=== PATIENT | female | born 1975 | race Caucasian/White ===

== ENCOUNTER 2016-08-01 15:58 | Emergency (ER) | payer BC, OTHER ==
[~2016-08-01] VITALS: Wt 80.5 kg
--- NOTE | 2016-08-01 16:34 | ERD ---
ER Documentation Chief Complaint Date/Time DATE: 08/01/16 TIME: 16:29 Chief Complaint COUGH WITH PHLEGM, SOB, ONSET 4 DAYS (CHELA FORRESTER) HPI This a 40-year-old female who presents to the emergency department today for cough, phlegm, shortness of breath for the past 4 days. Patient states she think she has had a fever because she has "felt warm". States that she has been using ipratropium inhaler. States that she is on day 3 of a Z-Bob. Denies any chest pain, cigarette smoking, prolonged travel peer (ELDER WILSON PA-C) ROS All systems reviewed and are negative except as per history of present illness. (CHELA FORRESTER) Medications Home Meds Active Scripts Guaifenesin-Dextromethorphan* (Robitussin* DM) 100MG/10MG/5ML Syrup, 10 ML PO Q4H Y for COUGH for 5 Days, ML Prov:ELDER WILSON PA-C 08/01/16 Prednisone* (Prednisone*) 20 Mg Tab, 40 MG PO DAILY for 4 Days, TAB Prov:ELDER WILSON PA-C 08/01/16 PMhx/Soc Medical and Surgical Hx: pt denies Medical Hx, pt denies Surgical Hx Hx Alcohol Use: No Hx Substance Use: No Hx Tobacco Use: No Smoking Status: Never smoker (CHELA FORRESTER) Physical Exam Vitals Vital Signs Date Time Temp Pulse Resp B/P Pulse Ox O2 Delivery O2 Flow Rate FiO2 08/01/16 16:01 99.0 95 17 128/84 97 (ELDER WILSON PA-C) Physical Exam Const: [] Head: Atraumatic Eyes: Normal Conjunctiva ENT: Normal External Ears, Nose and Mouth. Neck: Full range of motion..~ No meningismus. Resp: Clear to auscultation bilaterally Cardio: Regular rate and rhythm, no murmurs Abd: Soft, non tender, non distended. Normal bowel sounds Skin: No petechiae or rashes Back: No midline or flank tenderness Ext: No cyanosis, or edema Neur: Awake and alert Psych: Normal Mood and Affect (CHELA FORRESTER) Physical Exam General no acute distress Head atraumatic ENT ears TMs normal. Nose no drainage. Throat no erythema no exudate Lungs clear to auscultation bilaterally. No absent breath sounds. No wheezing CV regular rate and rhythm Extremities no cyanosis or edema. No calf tenderness. Neuro alert and oriented (ELDER WILSON PA-C) Results 24 hrs Current Medications Medications (Trade) Dose Ordered Sig/Kale Route PRN Reason Start Time Stop Time Status Last Admin Dose Admin Tetracaine HCl (Tetracaine 0.5% Steri-Unit Blanca) 1 drop ONCE ONCE ZFS 08/01/16 17:00 08/01/16 17:00 DC Fluorescein Sodium (Odhmf-T-Dxzpj) 1 strip ONCE ONCE RIGHT EYE 08/01/16 17:00 08/01/16 17:00 DC DIAGNOSTIC IMAGING REPORT Patient: STUART MARIN : 1975 Age: 40 Sex: F MR #: [id number] DOS: 08/01/16 0000 Ordering MD: ELDER WILSON PA-C Location: [facility] Room/Bed: PROCEDURE: XR Chest. CLINICAL INDICATION: Cough. Shortness of breath. TECHNIQUE: Single frontal chest x-ray. COMPARISON: 06/16/2015 FINDINGS: The lungs are clear of acute infiltrates, edema, effusions, or masses.. The cardiomediastinal silhouette is unremarkable. The osseous structures are intact. IMPRESSION: No acute cardiopulmonary disease. RPTAT: QQ .Pelon Parmar MD, MD Date Time Electronically viewed and signed by .Pelon Parmar MD, MD on 08/01/2016 16:39 .L/ CC: ELDER WILSON PA-C (ELDER WILSON PA-C) Results 24 hrs Current Medications Medications (Trade) Dose Ordered Sig/Kale Route PRN Reason Start Time Stop Time Status Last Admin Dose Admin Tetracaine HCl (Tetracaine 0.5% Steri-Unit Blanca) 1 drop ONCE ONCE ZFS 08/01/16 17:00 08/01/16 17:00 DC Fluorescein Sodium (Nckkh-Z-Ayhru) 1 strip ONCE ONCE RIGHT EYE 08/01/16 17:00 08/01/16 17:00 DC (CHELA FORRESTER) Procedures/MDM This a 40-year-old female who presents to the emergency department today for cough, shortness of breath for the past week. 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 Patient is afebrile and otherwise well-appearing. She is not tachycardic. Her oxygen saturation is 97%. Patient has been taking a Z-Bob and given patient's symptoms with no improvement I did obtain a chest x-ray per Chest x-ray is negative. Low suspicion for pneumonia, PE, abscess, pleural effusion, pneumothorax Patient symptoms at this time most consistent with URI likely viral versus bronchitis. I have low suspicion for strep pharyngitis, peritonsillar abscess, retropharyngeal abscess, otitis media, PNA, sinusitis, abscess, meningitis, sepsis, or other acute infectious bacterial process. I did offer the patient a breathing treatment here in the emergency department however she is declined. I also offered the patient prednisone prescription but stated she did not want to take it because she thought was going to make her gain weight. I explained to her that it was a low dose for a short period of time. Patient then accepted. I also gave the patient a prescription for Robitussin to help as an expectorant. Patient was asking for montelukast and I do not feel that is necessary at this time. At this time the patient is stable for discharge and outpatient management. They should follow up with their PCP in the next 1-2. They may return to the emergency department sooner if symptoms persist or worsen. Patient understood and agreed with the plan. Discussed the patient with Dr. Ellis he is in agreement with the plan (ELDER WILSON PA-C) Departure Diagnosis: Primary Impression: URI (upper respiratory infection) URI type: unspecified URI Qualified Code: J06.9 - Upper respiratory tract infection, unspecified type Condition: CHELA Mcdonald Aug 01, 2016 16:34 ELDER WILSON PA-C Aug 01, 2016 16:42
--- NOTE | 2016-08-01 16:39 | RADRPT ---
PROCEDURE: XR Chest. CLINICAL INDICATION: Cough. Shortness of breath. TECHNIQUE: Single frontal chest x-ray. COMPARISON: 06/16/2015 FINDINGS: The lungs are clear of acute infiltrates, edema, effusions, or masses.. The cardiomediastinal silho uette is unremarkable. The osseous structures are intact. IMPRESSION: No acute cardiopulmonary disease. RPTAT: QQ .Pelon Parmar MD, MD Date Time Electronically viewed and signed by .Pelon Parmar MD, MD on 08/01/2016 16:39 .L/
[2016-08-01] MEDS ORDERED: FLUORESCEIN STRIP RIGHT EYE ONE (17:00)
[2016-08-01] MEDS ORDERED: TETRACAINE 0.5% 4 ML OPH ZFS ONE (17:00)
[2016-08-01] MEDS ORDERED: PRED20TA PO (17:23)
[2016-08-01] MEDS ORDERED: UDROBDM PO (17:23)
--- NOTE | 2016-08-01 17:55 | ERD ---
ER Documentation Chief Complaint Date/Time DATE: 08/01/16 TIME: 17:52 Chief Complaint COUGH WITH PHLEGM, SOB, ONSET 4 DAYS HPI This 40-year-old female presents the emergency department today for cough, shortness of breath and phlegm for the past week. States that she thinks she has had a fever because she has "felt warm". States that she has been taking ipratropium inhaler and she is on day 3 of his Z-Bob. Denies any chest pain, prolonged travel, cigarette smoking ROS All systems reviewed and are negative except as per history of present illness. Medications Home Meds Active Scripts Guaifenesin-Dextromethorphan* (Robitussin* DM) 100MG/10MG/5ML Syrup, 10 ML PO Q4H Y for COUGH for 5 Days, ML Prov:ELDER WILSON PA-C 08/01/16 Prednisone* (Prednisone*) 20 Mg Tab, 40 MG PO DAILY for 4 Days, TAB Prov:ELDER WILSON PA-C 08/01/16 PMhx/Soc Medical and Surgical Hx: pt denies Medical Hx, pt denies Surgical Hx Hx Alcohol Use: No Hx Substance Use: No Hx Tobacco Use: No Smoking Status: Never smoker Physical Exam Vitals Vital Signs Date Time Temp Pulse Resp B/P Pulse Ox O2 Delivery O2 Flow Rate FiO2 08/01/16 16:01 99.0 95 17 128/84 97 Physical Exam Const: No acute distress Head: Atraumatic Eyes: Normal Conjunctiva ENT: Normal External Ears, Nose and Mouth. Neck: Full range of motion..~ No meningismus. Resp: Clear to auscultation bilaterally Cardio: Regular rate and rhythm, no murmurs Skin: No petechiae or rashes Back: No midline or flank tenderness Ext: No cyanosis, or edema. No gastroc tenderness. Neur: Awake and alert Psych: Normal Mood and Affect Results 24 hrs Current Medications Medications (Trade) Dose Ordered Sig/Kale Route PRN Reason Start Time Stop Time Status Last Admin Dose Admin Tetracaine HCl (Tetracaine 0.5% Steri-Unit Blanca) 1 drop ONCE ONCE ZFS 08/01/16 17:00 08/01/16 17:00 DC Fluorescein Sodium (Cwzki-N-Ptviq) 1 strip ONCE ONCE RIGHT EYE 08/01/16 17:00 08/01/16 17:00 DC Procedures/MDM This 40-year-old female who presents the emergency department today for cough, shortness of breath for the past week. Patient is afebrile and otherwise well- appearing. She is not tachycardic. Her oxygen saturation is 97%. 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 I did obtain a chest x-ray Chest x-ray is negative. Low suspicion for pneumonia, PE, abscess, pleural effusion, pneumothorax. I also offered to give the patient a breathing treatment however she is declined at this time. Patient symptoms at this time is consistent with URI likely viral versus bronchitis. Patient was instructed to continue taking her Z-Bbo. I offered to give the patient a prescription for prednisone however she did not want as she was worried about weight gain. I explained to the patient that it was a low dose for a short period of time and patient ended up agreeing to take the prescription. I also give her prescription for Robitussin. At this time the patient is stable for discharge and outpatient management. Patient should follow up with their PCP in the next 1-2 days. They may return to the emergency department sooner for any persistent or worsening of symptoms. Patient understood and agreed with the plan. Discussed the patient with Dr. Morse he is in agreement with the plan. Departure Diagnosis: Primary Impression: URI (upper respiratory infection) URI type: unspecified URI Qualified Code: J06.9 - Upper respiratory tract infection, unspecified type Condition: Fair Patient Instructions: Preventing Common Respiratory Infections Referrals: your PCP Additional Instructions: Call your primary care doctor TOMORROW for an appointment during the next 1-2 days.See the doctor sooner or return here if your condition worsens before your appointment time. Continue taking her antibiotics as prescribed Take prednisone and Robitussin for cough Drink plenty of fluids and stay well-hydrated ELDER WILSON PA-C Aug 01, 2016 17:55
== END 2016-08-01 17:42 | disposition home or self-care (01) ==
LOC: FTE 15:58
DX: J06.9 Acute upper respiratory infection, unspecified (principal)
CPT/HCPCS: 71010